=== PATIENT | male | born 1990 | race Caucasian/White ===

== ENCOUNTER 2021-03-06 06:12 | Emergency (ER) | payer OTHER ==
[~2021-03-06] VITALS: Ht 185.4 cm; Wt 158.8 kg
[2021-03-06 06:17] VITALS: BP 143/83
[2021-03-06] MEDS ORDERED: SULF1TAB48 PO (06:32)
--- NOTE | 2021-03-06 06:34 | NUR ---
Patient discharged to law enforcment in stable condition. Written and verbal after care instructions given. Patient verbalizes understanding of instruction.
== END 2021-03-06 06:35 ==
LOC: ER 06:15
DX: L03.115 Cellulitis of right lower limb (principal); Z79.899 Other long term (current) drug therapy; Z02.89 Encounter for other administrative examinations